=== PATIENT | female | born 1965 | race Caucasian/White ===

== ENCOUNTER 2019-10-23 06:12 | Emergency (ER) | payer SELFPAY ==
--- NOTE | 2019-10-23 06:26 | ECG_ITS ---
Measurements Intervals [place] Rate: 59 P: 3 MS: 159 QRS: 6 QRSD: 78 T: 12 QT: 412 QTc: 410 Interpretive Statements SINUS BRADYCARDIA WITH SINUS ARRHYTHMIA DELAYED PRECORDIAL R/S TRANSITION LOW QRS VOLTAGE IN PRECORDIAL LEADS BORDERLINE T WAVE ABNORMALITY- ANT/INF LEADS BASELINE WANDER- I, II, III BORDERLINE ECG Electronically Signed On 10-23-2019 7:59:12 CDT by Toni Burks D.O.
[2019-10-23 06:31] VITALS: BP 131/83; PULSE 98; RESP 20; TEMP 36.9; O2SAT 98
--- NOTE | 2019-10-23 06:37 | ED.ABDPAIN ---
HPI - Abdominal Pain General Chief Complaint: Abdominal Pain Stated Complaint: abd pain Time Seen by Provider: 10/23/19 06:21 Source: patient Mode of arrival: EMS Limitations: no limitations History of Present Illness HPI narrative: 54 yo female who presents with c/o left upper abdominal pain. Patient states she was vomiting tonight and developed left upper abdominal pain so she called EMS. Patient states she has had this abdominal pain in the past but she didn't think much of it. She thought her pain was just gas, so she usually takes tums and her pain is relieved. She did not take any medication this morning. She describes her pain has burrning and sharp. She also notes 4 days ago she has 24 hours of nausea, vomiting and diarrhea, but those symptoms seemed to have resolved until the vomiting returned this morning. She also states she had Tmax 99.6 on . She reports she has never been evaluated for this abdominal pain in the past and she has not had medical care in 6 years. She takes naproxen as needed. MD elicited complaint: abdominal pain Pain Consistency: intermittent Location: LUQ Quality: sharp and burning Radiation: none Migration to: no migration Exacerbating factors: nothing Relieving factors: nothing Related Data Home Medications Medication Instructions Recorded Confirmed naproxen 250 mg PO BID PRN 10/23/19 Allergies Allergy/AdvReac Type Severity Reaction Status Date / Time No Known Allergies Allergy Verified 10/23/19 06:37 Review of Systems Review of Systems: All systems reviewed & are unremarkable except as noted in HPI and below Constitutional: Constitutional: Denies chills, Reports fever(s) and Denies weakness ENT: Denies dizziness Cardiovascular: Cardiovascular: Denies chest pain Respiratory: Respiratory: Denies cough and Denies dyspnea Gastrointestinal: Gastrointestinal: Reports abdominal pain, Reports diarrhea, Reports nausea and Reports vomiting Genitourinary: Genitourinary: Denies hematuria, Denies dysuria and Denies flank pain PMFSH Surgical History Surgical History (Updated 10/23/19 @ 06:37 by Ellyn Nava MD) H/O total hysterectomy Social History Social History (Updated 10/23/19 @ 06:38 by Ellyn Nava MD) Smoking packs per day: 0.5 Smoking cigarettes per day: 10.0 Alcohol intake: never Substance use: never Gender identity (if verbalized by the patient): Female Exam Narrative: Exam Narrative: GENERAL: Well-appearing, well-nourished, and in no acute distress. HEAD: Normocephalic, atraumatic EYES: PERRLA and EOMI, conjunctiva clear without discharge THROAT:Mucous membranes moist, Oropharynx normal without erythema, exudate, peritonsillar swelling or fluctuance NECK: Supple, without lymphadenopathy or mass RESPIRATORY: No respiratory distress, Airway patent, Respirations non-labored, Clear to auscultation without rales, rhonchi or wheeze HEART: Regular rate and rhythm. No murmur heard. Normal peripheral pulses. ABDOMEN: Soft, TTP RUQ, epigastric, and LUQ, nondistended, normal active bowel sounds. No masses. No rebound or guarding, No organomegaly. EXTREMITIES: No edema, normal strength with full range of motion. SKIN: Warm, dry, normal color without rash NEURO: Alert and oriented x3. CN 2-12 grossly intact. No focal deficits. PSYCH: Normal mood and affect. Course Reevaluation(s) Reevaluation #1: PAtient states her pain has resolved after GI cocktail. I have discussed with patient that she should stop naproxen and start nexium. She will need to follow up with PCP for possible PUD Date: 10/23/19 Time: 07:59 Vital Signs Vital signs: Vital Signs Temperature 98.5 F 10/23/19 06:31 Pulse Rate 98 10/23/19 06:31 Respiratory Rate 20 10/23/19 06:31 Blood Pressure 131/83 10/23/19 06:31 Pulse Oximetry 98 10/23/19 06:31 Temperature 98.5 F 10/23/19 06:31 Pulse Rate 88 10/23/19 08:05 Respiratory Rate 1
[2019-10-23] MEDS: LACTATED RINGERS 1,000 ML 999 ML IV CONT (06:50)
[2019-10-23] MEDS: PANTOPRAZOLE SODIUM IV 40 MG VIAL IV PUSH (06:51)
[2019-10-23] MEDS: ONDANSETRON INJ 4 MG/2 ML VIAL IV PUSH (06:51)
[2019-10-23] MEDS: BELLADONNA ALK/PHENOB ELIX 10 ML, MAG HYDROX/ALUMINUM HYD/SIMETH 30 ML, LIDOCAINE HCL 2... PO (06:51)
[2019-10-23 07:12] LABS: Basophils Percent Auto 0.5 % (0.2-1.2); Eosinophils Absolute Auto 0.3 K/mm3 (0-0.3); Eosinophils Percent Auto 4.5 % (0-4.4); Hematocrit 49.5 % (37.0-47.0); Hemoglobin 16.2 g/dL (12.0-15.0); Immature Granulocyte Absolute 0.02 K/mm3 (0.00-0.031); Immature Granulocyte Percent A 0.3 % (0-0.5); Lymphocytes Absolute Auto 2.19 K/mm3 (0.9-3.2); Lymphocytes Percent Auto 35.6 % (18.3-44.2); Mean Corpuscular HGB Conc 32.7 g/dl (32-36); Mean Corpuscular Hemoglobin 29.3 pg (26-34); Mean Corpuscular Volume 89.5 fl (80-100); Mean Platelet Volume 13.1 fl (7.4-10.4); Monocytes Absolute Auto 0.6 K/mm3 (0.1-0.6); Monocytes Percent Auto 9.4 % (2.6-8.5); Neutrophils Absolute Auto 3.1 K/mm3 (1.3-6.7); Neutrophils Percent Auto 49.7 % (45.5-73.1); Platelet Count Result 189 k/mm3 (150-375); Red Blood Count 5.53 M/mm3 (4.2-5.4); Red Cell Distribution Width 13.2 % (11.5-14.5); White Blood Count 6.2 K/mm3 (4.5-10.0)
[2019-10-23 07:24] LABS: Alanine Aminotransferase 25 U/L (4-35); Albumin Level 4.1 g/dL (3.5-5.1); Alkaline Phosphatase 78 U/L (38-126); Aspartate Amino Transferase 25 U/L (14-36); Bilirubin,Total 0.3 mg/dL (0.2-1.3); Blood Urea Nitrogen 13 mg/dL (7-17); Calcium 9.2 mg/dL (8.4-10.2); Carbon Dioxide 27 mmol/L (22-30); Chloride 104 mmol/L (98-107); Estimated CRCL calculation 107 ml/min; Estimated Glomerular Filt Rate > 60; Glucose 111 mg/dL (65-105); Lipase 53 U/L (23-300); Sodium 138 mmol/L (137-145)
[2019-10-23 07:27] LABS: Add Urine Microscopic? YES; Amorphous Sediment Urine Moderate; Appearance Urine Turbid (Clear); Bilirubin Urine Negative (Negative); Blood Urine Negative (Negative); Color Urine Yellow (Yellow); Glucose Urine UA Negative (Negative); Ketones Urine Trace mg/dL (Negative); Leukocyte Esterase Ur Negative LEU/UL (Negative); Nitrate Urine Negative (Negative); Protein Urine 1+ mg/dL (Negative); Squamous Epithelial Cell Urine Many /hpf (Few)
[2019-10-23 08:05] VITALS: BP 128/82; PULSE 88; RESP 14; O2SAT 98
== END 2019-10-23 08:10 | disposition home or self-care (01) ==
PROVIDERS: Emergency Provider General Practice
DX: R10.12 Left upper quadrant pain (principal); F17.210 Nicotine dependence, cigarettes, uncomplicated; R00.1 Bradycardia, unspecified; R94.31 Abnormal electrocardiogram [ECG] [EKG]
CPT/HCPCS: 36415; 80053; 81001; 83690; 85025; 93005; 96361; 96374; 96375; 99284; A9270; C9113; J2405; J7120